=== PATIENT | male | born 1955 | race Caucasian/White ===

== ENCOUNTER 2024-01-02 08:50 | Outpatient (CLI) | payer MEDICARE | END 2024-01-02 08:51 | disposition home or self-care (01) | LOC: CSHULT 08:50 | PROVIDERS: ATTEND Internal Medicine | DX: N28.1 Cyst of kidney, acquired (principal); K76.0 Fatty (change of) liver, not elsewhere classified; N28.89 Other specified disorders of kidney and ureter | CPT/HCPCS: 76700 ==

== ENCOUNTER 2024-01-23 08:54 | Outpatient (CLI) | payer MEDICARE ==
[2024-01-23] MEDS ORDERED: Iopamidol 370 76% 100 ML VIAL ONE (11:34)
== END 2024-01-23 08:55 | disposition home or self-care (01) ==
LOC: CSHCT 08:54
PROVIDERS: ATTEND Internal Medicine
DX: N28.89 Other specified disorders of kidney and ureter (principal); N28.1 Cyst of kidney, acquired; N28.9 Disorder of kidney and ureter, unspecified
CPT/HCPCS: 74170; 82565; Q9967

== ENCOUNTER 2025-03-18 10:07 | Outpatient (CLI) | payer MEDICARE | END 2025-03-18 10:08 | disposition home or self-care (01) | LOC: CSHCT 10:07 | PROVIDERS: ATTEND Urology | DX: C80.1 Malignant (primary) neoplasm, unspecified (principal); Z90.5 Acquired absence of kidney; N28.1 Cyst of kidney, acquired; K57.30 Diverticulosis of large intestine without perforation or abscess without bleeding | CPT/HCPCS: 71046; 74150 ==